=== PATIENT | female | born 1980 | race Caucasian/White ===

== ENCOUNTER 2016-04-29 13:29 | Outpatient (CLI) | payer OTHER ==
[2016-04-29] MEDS ORDERED: GADOBUTROL 7.5 MMOL/7.5 ML VIAL IVP ONE (14:05)
== END 2016-04-29 13:30 | disposition home or self-care (01) ==
DX: E23.6 Other disorders of pituitary gland (principal); R20.9 Unspecified disturbances of skin sensation; R90.89 Other abnormal findings on diagnostic imaging of central nervous system
CPT/HCPCS: 70553; A9585

== ENCOUNTER 2017-05-05 07:47 | Outpatient (CLI) | payer OTHER ==
--- NOTE | 2017-05-06 18:50 | Mammography Report ---
DIGITAL SCREENING MAMMOGRAM: 05/05/2017 CLINICAL INDICATION: A 37-year-old with family history of breast cancer (mother, diagnosed at age 40) for screening. COMPARISON: 10/2015, 06/2014, 04/2012. TECHNIQUE: Routine CC and MLO projections as well as bilateral laterally exaggerated craniocaudal views were obtained of the breasts. FINDINGS: The breasts again demonstrate heterogeneously dense fibroglandular parenchyma bilaterally. Punctate, typically benign calcifications are present. No suspicious masses, clustered microcalcifications, or regions of architectural distortion are identified. IMPRESSION: BENIGN FINDINGS. RECOMMENDATIONS: Routine annual screening unless otherwise clinically indicated. BIRADS category 2 benign findings. STANDARD QUALIFYING STATEMENTS 1. This examination was reviewed with the aid of Computed-Aided Detection (CAD). 2. A negative or benign imaging report should not delay biopsy if clinically suspicious findings are present. Consider surgical consultation if warranted. More than 5% of cancers are not identified by imaging. 3. Dense breasts may obscure an underlying neoplasm. TD: 05/06/2017 18:49
== END 2017-05-05 07:48 | disposition home or self-care (01) ==
LOC: DI 07:47
PROVIDERS: ATTEND Family Medicine
DX: Z12.31 Encounter for screening mammogram for malignant neoplasm of breast (principal); Z80.3 Family history of malignant neoplasm of breast
CPT/HCPCS: 77067

== ENCOUNTER 2017-05-05 07:47 | Outpatient (CLI) | payer OTHER ==
[2017-05-05] MEDS ORDERED: GADOBUTROL 7.5 MMOL/7.5 ML VIAL ONE (07:52)
[2017-05-05] MEDS ORDERED: GADOBUTROL 7.5 MMOL/7.5 ML VIAL IVP ONE (08:51)
--- NOTE | 2017-05-05 11:21 | MRI Report ---
EXAM: MRI BRAIN WITHOUT AND WITH CONTRAST EXAM DATE: 05/05/2017 09:04 AM. CLINICAL HISTORY: Brain cyst, compare to MRI April 2016. COMPARISON: MRI brain 04/29/2016. TECHNIQUE: Multiplanar, multisequence T1-weighted and fluid-sensitive MR sequences of the brain were performed. Sequences optimized for routine evaluation. Other: None. IV Contrast: 7.5 cc Gadavist. FINDINGS: No cerebellar tonsillar ectopia is present. No abnormal diffusion signal or magnetic susceptibility is identified in the brain parenchyma. Ventricles and sulci are within normal limits. No extra-axial fluid collection is present. There are a few FLAIR hyperintensities in the subcortical white matter of each cerebral hemisphere mo st evident in the frontal lobe bilaterally. No abnormal T1 shortening is present in the brain parenchyma. The pituitary stalk is not thickened. The pituitary gland is normal in size. On the sagittal T1 fat-s aturated sequence there is an oval 4 x 2 mm T1 hypointense focus which on the precontrast images is s omewhat T1 hyperattenuating. This is unchanged in size. This is seen in the posterior aspect of the s scot turcica near midline. No enhancing mass is identified in the brain parenchyma. The cavernous sinuses enhance in symmetric f ashion. Expected enhancement is seen in the major dural venous sinuses. Paranasal sinus mucosal thickening is seen, most evident in the ethmoid air cells and maxillary sinus . IMPRESSION: 1. Stable pituitary lesion. 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 Continued imaging surveillance may be of value. 2. Subcortical FLAIR hyperintensities in each frontal lobe are nonspecific. Commonly, these are seen in association with certain headache syndromes or secondary to small vessel ischemic change. 3. No enhancing mass is present in the brain parenchyma. 4. Paranasal sinus mucosal thickening is present. [facility] Referring Provider Line: [phone] SITE ID: [id number]
== END 2017-05-05 07:48 | disposition home or self-care (01) ==
LOC: DI 07:47
PROVIDERS: ATTEND Family Medicine
DX: E23.7 Disorder of pituitary gland, unspecified (principal)
CPT/HCPCS: 70553; A9585

== ENCOUNTER 2017-07-04 09:12 | Outpatient (CLI) | payer OTHER | END 2017-07-04 09:13 | disposition home or self-care (01) | LOC: RT 09:12 | PROVIDERS: ATTEND Family Medicine | DX: R06.02 Shortness of breath (principal) | CPT/HCPCS: 94010 ==

== ENCOUNTER 2017-11-04 15:25 | Outpatient (CLI) | payer OTHER ==
--- NOTE | 2017-11-04 16:58 | XRAY Report ---
Procedure Date: 11/04/2017 Accession Number: [id number] / [id number] Procedure: XRN - Foot 3 View RT CPT Code: FULL RESULT: EXAM: RIGHT FOOT RADIOGRAPHY EXAM DATE: 11/04/2017 03:38 PM. CLINICAL HISTORY: Contusion right foot. COMPARISON: None. TECHNIQUE: 3 views. FINDINGS: Bones: Normal. No fractures or bone lesions. Joints: Normal. No subluxations. Soft Tissues: Normal. No soft tissue swelling. IMPRESSION: Normal foot radiography. [facility]
== END 2017-11-04 15:26 | disposition home or self-care (01) ==
LOC: DI.N 15:25
PROVIDERS: ATTEND Family Medicine
DX: S90.31XA Contusion of right foot, initial encounter (principal)

== ENCOUNTER 2018-08-18 09:40 | Outpatient (CLI) | payer OTHER ==
[2018-08-18] MEDS ORDERED: GADOBUTROL 10 MMOL/10 ML VIAL ONE (09:48)
[2018-08-18] MEDS ORDERED: GADOBUTROL 10 MMOL/10 ML VIAL IVP ONE ×2 (10:43)
--- NOTE | 2018-08-18 15:43 | MRI Report ---
Reason: PITUITARY LESION Procedure Date: 08/18/2018 Accession Number: [id number] / [id number] Procedure: MRI - Brain W/WO CPT Code: FULL RESULT: EXAM: MRI BRAIN WITHOUT AND WITH CONTRAST EXAM DATE: 08/18/2018 10:44 AM. CLINICAL HISTORY: PITUITARY LESION. COMPARISON: BRAIN W/WO 05/05/2017 8:00 AM BRAIN W/WO 04/29/2016 1:42 PM HEAD W/O 01/23/2016 9:53 AM. TECHNIQUE: Multiplanar, multisequence T1-weighted and fluid-sensitive MR sequences of the brain were performed. Sequences optimized for routine brain and pituitary evaluation. Other: None. IV Contrast: Yes, 8 mL Gadavist. FINDINGS: Brain Volume: Normal for age. Parenchyma: No acute hemorrhage, mass, or infarct. Several punctate foci of increased T2 signal involving subcortical white matter of the cerebral hemispheres, within normal limits for adults. No abnormal enhancement. Ventricles/Cisterns: No hydrocephalus. No abnormal extra-axial fluid collection or hemorrhage. Orbits: Symmetric and unremarkable. Sella Turcica: The pituitary is normal in size. Again there is a 4 x 2 mm focus of high T1 signal in the posterior aspect of the plan. This demonstrates prominent high T1 signal on all series except T1 fat-saturation postcontrast. Infundibulum midline and normal in appearance. Suprasellar cistern unremarkable. Cavernous sinuses and optic chiasm unremarkable. IAC: Symmetric and unremarkable. Vasculature: Normal signal flow void is seen in the major arterial structures at the skull base. The dural sinuses are patent and enhance normally. Sinuses: There is mild bilateral maxillary sinus mucosal thickening. No sinus fluid levels. Bones: No focal pathologic appearing marrow signal changes. Other: None. IMPRESSION: 1. 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 2. Mild chronic appearing paranasal sinus disease. 3. Otherwise normal brain MRI. [facility]
== END 2018-08-18 09:41 | disposition home or self-care (01) ==
LOC: DI 09:40
PROVIDERS: ATTEND Family Medicine
DX: E23.6 Other disorders of pituitary gland (principal); J32.9 Chronic sinusitis, unspecified
CPT/HCPCS: 70553; A9585

== ENCOUNTER 2019-03-03 11:24 | Outpatient (CLI) | payer OTHER ==
--- NOTE | 2019-03-03 11:57 | Mammography Report ---
Reason: ROUTINE MAMMO Procedure Date: 03/03/2019 Accession Number: [id number] / [id number] Procedure: MGN - Screening Mammo Dig Bilat CPT Code: Final Report FULL RESULT: EXAM: Screening Mammo Dig Bilat DATE: 03/03/2019 11:45 AM CLINICAL HISTORY: Screening encounter. Family history of breast cancer in the mother at the age of 40. TECHNIQUE: (B) - Bilateral CC and MLO views were obtained. Left laterally exaggerated CC view is obtained. COMPARISON: 05/05/2017 through 05/08/2012. PARENCHYMAL PATTERN: (D) - The breast(s) demonstrate(s) heterogeneously dense fibroglandular parenchyma. FINDINGS: There are no suspicious masses, calcifications, or areas of distortion. IMPRESSION: Negative examination. BI-RADS category 1. RECOMMENDATION: (ANNUAL) - Recommend routine annual screening mammography. BI-RADS CATEGORY: (1) - Negative. STANDARD QUALIFYING STATEMENTS: 1. This examination was not reviewed with the aid of Computer-Aided Detection (CAD). 2. A negative or benign imaging report should not preclude biopsy if clinically suspicious findings are present. 3. Dense breasts may obscure an underlying neoplasm. 4. This examination was reviewed without the aid of 3D breast imaging (tomosynthesis).
== END 2019-03-03 11:25 | disposition home or self-care (01) ==
LOC: DI.N 11:24
DX: Z12.31 Encounter for screening mammogram for malignant neoplasm of breast (principal); Z80.3 Family history of malignant neoplasm of breast
CPT/HCPCS: 77067

== ENCOUNTER 2019-09-28 09:55 | Outpatient (CLI) | payer OTHER ==
--- NOTE | 2019-09-28 17:03 | XRAY Report ---
PROCEDURE: Hand 3 View RT INDICATIONS: RT HAND PAIN TECHNIQUE: 3 views of the hand(s) acquired. COMPARISON: None. FINDINGS: Bones: No fractures or dislocations. No suspicious bony lesions. Soft tissues: No suspicious soft tissue calcifications. IMPRESSION: Right hand without acute fracture or dislocation. If there is persistent clinical concern for a radiographically occult fracture, recommend immobilizat ion and repeat imaging in 10 to 14 days. Reviewed by: Wily Cohn MD on 09/28/2019 5:01 PM PDT Approved by: Wily Cohn MD on 09/28/2019 5:01 PM PDT Station ID: [id number]
== END 2019-09-28 09:56 | disposition home or self-care (01) ==
LOC: DI 09:55
PROVIDERS: ATTEND Physician Assistant
DX: M79.641 Pain in right hand (principal)

== ENCOUNTER 2020-03-30 08:56 | Outpatient (CLI) | payer OTHER ==
--- NOTE | 2020-03-31 12:51 | Mammography Report ---
BILATERAL DIGITAL SCREENING MAMMOGRAM 3D/2D: 03/30/2020 CLINICAL: Family history of breast cancer. Routine screening. Comparison is made to exams dated: 03/03/2019 mammogram, 03/04/2018 mammogram, 11/13/2015 mammogram, 07/11/2014 mammogram, 07/05/2014 mammogram, and 05/08/2012 mammogram - [facility]. Th e tissue of both breasts is heterogeneously dense. This may lower the sensitivity of mammography. No significant masses, calcifications, or other findings are seen in either breast. There has been no significant interval change. IMPRESSION: NEGATIVE There is no mammographic evidence of malignancy. A 1 year screening mammogram is recommended. This exam was interpreted at Station ID: [id number]. NOTE: For mammograms, a report in lay terms will be sent to the patient. Approximately 15% of breast malignancies will not be visualized mammographically. In the management of a palpable breast mass, a negative mammogram must not discourage biopsy of a clinically suspicious lesion. Electronically Signed By: Davis Sanchez acr/penrad:03/30/2020 10:05:52 ACR BI-RADS Category 1: Negative 3341F PARENCHYMAL PATTERN: (D) - The breast(s) demonstrate(s) heterogeneously dense fibroglandular [place]. BI-RADS CATEGORY: (1) - 1 RECOMMENDATION: (ANNUAL) - Recommend routine annual screening mammography. [id number] 1 year screening LATERALITY: (B)
--- OUTSIDE RECORDS SUMMARY | 2020-04-05 01:02 | EXTERNAL MEDICAL SUMMARY RPT | Continuity of Care Document ---
:1980 Demographics Phone Unavailable Preferred Language Unknown Marital Status Unknown Moravian Affiliation Unknown Race Unknown Ethnic Group Unknown Author Organization [facility] Address [address] [phone] Phone Care Team Providers Name Role Phone Sisu Unavailable Unavailable Allergies date description facility No Known Drug Allergies [facility] Social History date description facility [id number]
== END 2020-03-30 08:57 | disposition home or self-care (01) ==
LOC: DI.N 08:56
DX: Z12.31 Encounter for screening mammogram for malignant neoplasm of breast (principal); Z80.3 Family history of malignant neoplasm of breast
CPT/HCPCS: 77067

== ENCOUNTER 2020-06-30 07:26 | Outpatient (CLI) | payer OTHER ==
--- NOTE | 2020-06-30 12:32 | CARDIAC PROCEDURE NOTE ---
DATE OF SERVICE: 06/30/2020 Physician: Vijaya Bello MD, [facility] INDICATION: Exertional dyspnea. CARDIAC RISK FACTORS: Obesity, family history of heart disease. DESCRIPTION OF PROCEDURE: After signing informed consent, the patient underwent a Kory-protocol treadmill stress test. There was no cardiac imaging ordered with this test. RESTING HEART RATE: 110. PEAK HEART RATE: 169 (92% predicted maximum heart rate for age). RESTING BLOOD PRESSURE: 140/77. PEAK BLOOD PRESSURE: 197/80. The patient exercised for 4 minutes and 4 seconds on a Kory-protocol treadmill stress test. She achieved a peak heart rate of 169 (92% PMHR) and 5.9 METs. The patient developed moderate shortness of breath at the end of stage I and severe shortness of breath at peak exercise. She rated her perceived exertion at 16/20 at peak on the Gurinder scale. The patient had no chest pain. Oxygen saturation was 98-100% on room air throughout the test. RESTING EKG: Sinus tachycardia, rate 110, right atrial enlargement, occasional PVCs. EKG AT PEAK: No new ST segment or T-wave changes develop, rare PVCs seen in early recovery (which were symptomatic). SUMMARY: 1. Abnormal resting EKG. She was tachycardic the entire visit. 2. Poor exercise tolerance, but no desaturation of oxygen developed. 3. No ischemic changes by EKG criteria. 4. This patient's cardiac risk: Low. IMPRESSION: 1. Normal stress test regarding coronary artery disease. 2. Possible cor pulmonale given the findings of right atrial enlargement on resting EKG and early shortness of breath. RECOMMENDATIONS: Echo to evaluate for cor pulmonale and also advise PFTs, sleep apnea study, referral to Pulmonology. cc: Marissa Cutler PA-C TD: 06/30/2020 12:31 [facility]
== END 2020-06-30 07:27 | disposition home or self-care (01) ==
LOC: DI 07:26
PROVIDERS: ATTEND Physician Assistant Medical
DX: R06.09 Other forms of dyspnea (principal); R00.0 Tachycardia, unspecified
CPT/HCPCS: 93017

== ENCOUNTER 2021-01-10 11:58 | Outpatient (CLI) | payer OTHER | END 2021-01-10 11:59 | disposition home or self-care (01) | LOC: DI 11:58 | PROVIDERS: ATTEND Physician Assistant | DX: R07.9 Chest pain, unspecified (principal); R06.09 Other forms of dyspnea | CPT/HCPCS: 93306 ==

== ENCOUNTER 2021-05-14 12:02 | Emergency (ER) | payer OTHER ==
--- NOTE | 2021-05-14 12:08 | ED Physician Documentation ---
PD HPI URI - Stated complaint Stated Complaint: COUGH, SOA - History obtained from History obtained from: Patient - History of Present Illness Timing - onset: How many months ago (1) Timing duration: Months (1) Timing details: Gradual onset, Still present Associated symptoms: Dry cough, Dyspnea. No: Fever, Chills, Sore throat Contributing factors: Sick contact (had COVID with positive test 04/15/21 and symptoms about 3-4 days and improved except for persistent cough and wheezing.). No: Unimmunized, COPD / asthma Similar symptoms before: Has not had sx before Recently seen: Not recently seen Review of Systems Constitutional: reports: Myalgias. 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 - Present Medications Home Medications: Ambulatory Orders Medication Instructions Recorded Confirmed Terbinafine [Lamisil] 250 mg PO DAILY 01/23/16 03/11/16 Lorazepam [Ativan] 1 mg PO Q8H PRN #20 tablet 03/11/16 Albuterol Sulf [Ventolin Hfa 2 - 3 puffs INH Q4HR PRN #1 inhaler 05/14/21 Inhaler] Benzonatate [Tessalon] 100 mg PO TID PRN #25 cap 05/14/21 Doxycycline Hyclate 100 mg PO BID 5 Days #10 cap 05/14/21 dexAMETHasone [Decadron] 4 mg PO DAILY #6 tablet 05/14/21 - Allergies Allergies/Adverse Reactions: Allergies Allergy/AdvReac Type Severity Reaction Status Date / Time No Known Drug Allergies Allergy Verified 05/14/21 12:08 - Social History Does the pt smoke?: No Smoking Status: Never smoker PD ED PE NORMAL - Vitals Vital signs reviewed: Yes - General General: Alert and oriented X 3, No acute distress, Well developed/nourished - HEENT HEENT: Ears normal, Pharynx benign - Neck Neck: Supple, no meningeal sign, No adenopathy - Cardiac Cardiac: RRR, No murmur - Respiratory Respiratory: No: Clear bilaterally (no coarse sounds but has exp wheezing centrally and decreased tidal volume. COughing episode with deep breathing. ) - Derm Derm: Normal color, Warm and dry - Extremities Extremities: No edema, No calf tenderness / cord - Neuro Neuro: Alert and oriented X 3, No motor deficit, Normal speech Results - Vitals Vitals: Oxygen O2 Source Room air - Rads (name of study) chest xray Radiology: Prelim report reviewed (no acute process, no infiltrates. ), See rad report PD MEDICAL DECISION MAKING - ED course Complexity details: re-evaluated patient (improved cough and breathing with neb treatment and meds. ), considered differential, d/w patient Departure - Departure Disposition: 01 Home, Self Care Clinical Impression: Persistent cough for 3 weeks or longer, Acute bronchitis due to COVID-19 virus Condition: Stable Record reviewed to determine appropriate education?: Yes Instructions: ED Upper Resp Infec Abx Tx Follow-Up: THUY SIMON PA-C [Primary Care Provider] - Prescriptions: Albuterol Sulf [Ventolin Hfa Inhaler] 2 - 3 puffs INH Q4HR PRN #1 inhaler PRN Reason: Shortness Of Air/Wheezing dexAMETHasone [Decadron] 4 mg PO DAILY #6 tablet Doxycycline Hyclate 100 mg PO BID 5 Days #10 cap Benzonatate [Tessalon] 100 mg PO TID PRN #25 cap PRN Reason: Cough Comments: Use the albuterol inhaler 2 to 3 puffs 4 times a day for the next several days to a week and then as needed after that. Decadron 6 steroid daily for 6 more days. Use benzonatate/Tessalon if needed for cough as well. Stay well-hydrated. Your chest x-ray appears normal without any signs of pneumonia. You may be heavy persistent bronchial inflammation and irritation post Covid which would not be unusual to last for a month or 2. However it can be difficult to distinguish from a secondary bacterial infection as well. Therefore doxycycline antibiotic twice daily for 5 days can be appropriate as well. Recheck if not improving well over the next several days to week. I transmitted your prescriptions to [facility] pharmacy. Discharge Date/Time: 05/14/21 14:06
[2021-05-14 12:12] VITALS: BP 160/90
[2021-05-14] MEDS ORDERED: DEXAMETHASONE 10 MG/ML VIAL PO STA (12:38)
[2021-05-14] MEDS ORDERED: CHERRY SYRUP 10 ML UDC PO ONE (12:38)
[2021-05-14] MEDS ORDERED: ALBUTEROL NEB 2.5 MG/3 ML INH STA (12:38)
[2021-05-14] MEDS ORDERED: BENZONATATE 100 MG CAPSULE PO STA (12:38)
--- NOTE | 2021-05-14 13:01 | XRAY Report ---
PROCEDURE: Chest 1 View X-Ray INDICATIONS: cough/dyspnea TECHNIQUE: One view of the chest was acquired. COMPARISON: January 23, 2016 FINDINGS: SUPPORT DEVICES: None. LUNGS/PLEURA: No focal consolidation, pleural effusion or space-occupying pneumothorax. MEDIASTINUM: The cardiomediastinal silhouette is within normal limits. BONES/SOFT TISSUES: No acute abnormality. IMPRESSION: 1.No acute cardiopulmonary abnormality. Reviewed by: Efrain Ramon MD on 05/14/2021 12:59 PM [facility] Approved by: Efrain Ramon MD on 05/14/2021 12:59 PM [facility] Station ID: [id number]
== END 2021-05-14 14:06 | disposition home or self-care (01) ==
LOC: ED 12:02
DX: U07.1 COVID-19 (principal); J20.8 Acute bronchitis due to other specified organisms
CPT/HCPCS: 71045; 94640; 94664; 99284; A9270

== ENCOUNTER 2021-05-28 09:21 | Outpatient (CLI) | payer OTHER ==
--- NOTE | 2021-05-28 10:32 | XRAY Report ---
PROCEDURE: Chest 2 View X-Ray INDICATIONS: SOB TECHNIQUE: 2 view(s) of the chest. COMPARISON: None. FINDINGS: Surgical changes and devices: None. Lungs and pleura: No pleural effusions or pneumothorax. Diffuse interstitial prominence and bilatera l perihilar airway thickening. No focal consolidation. Findings are more pronounced in the mid and lo wer lung zones. Mediastinum: Mediastinal contours are normal. Heart size is normal. Bones and chest wall: No suspicious bony abnormalities. Soft tissues appear unremarkable. IMPRESSION: Diffuse mid and lower lung zone predominant interstitial prominence with perihilar airway thickening likely related to an infectious/inflammatory process such as reactive airway disease. No focal consol idation. Recommend follow-up chest radiograph 4-6 weeks after treatment to document resolution of findings and /or return to baseline exam. Reviewed by: Wily Cohn MD on 05/28/2021 10:31 AM [facility] Approved by: Wily Cohn MD on 05/28/2021 10:31 AM [facility] Station ID: [id number]
== END 2021-05-28 23:59 | disposition home or self-care (01) ==
LOC: DI.N 09:21
PROVIDERS: ATTEND Physician Assistant
DX: R06.00 Dyspnea, unspecified (principal); R91.8 Other nonspecific abnormal finding of lung field

== ENCOUNTER 2021-05-28 10:06 | Emergency (ER) | payer OTHER ==
[2021-05-28 10:28] VITALS: BP 174/99
--- OUTSIDE RECORDS SUMMARY | 2021-05-28 10:30 | EXTERNAL MEDICAL SUMMARY RPT | Continuity of Care Document ---
:1980 Author Organization [facility] Address [address] [place] [address] Phone Care Team Providers Name Role Phone MD Unavailable Unavailable Mckinley Unavailable Unavailable Allergies No information. Encounters No information. Medications No information. Problems date description facility [id number] X-RAY EXAM CHEST 2 VIEWS All [id number] Shortness of breath All [id number] Dyspnea All [id number] [facility] Results No information. Vital Signs date measurement value source 20210528 weight_standard 206 lb 20210528 weight_metric 93.44 kg 20210528 temperature_standard 99.6 F 20210528 temperature_metric 37.56 C 20210528 respiration_rate 16 /min 20210528 height_standard 62.25 in 20210528 height_metric 158.12 cm 20210528 heart_rate 98 /min 20210528 BP_systolic 151 mm[Hg] 20210528 BP_diastolic 98 mm[Hg] 20210528 BMI 37.51 kg/m2
--- NOTE | 2021-05-28 10:47 | ED Physician Documentation ---
History of Present Illness - Stated complaint Stated Complaint: SOA - Chief complaint Chief Complaint: Resp - History obtained from History obtained from: Patient - Additonal information Additional information: The patient comes to the emergency department chief complaint of ongoing shortness of breath. She also complains of wheezing and a productive cough. The patient had Covid about 6 weeks ago and states that she is never really gotten rid of her cough since. She was seen a couple weeks ago and placed on antibiotics, steroid, and an inhaler and symptoms got a lot better. However, since she finished those treatments, her symptoms have progressively recurred. She still using her inhaler which helps only a little. She has been noticing shortness of breath, chest tightness, and wheezing since. No fevers. The patient states she has some greenish-yellow phlegm when she coughs. She did not previously have any lung problems. The patient was seen in the walk-in clinic and had an x-ray done, but the results are unknown. She was sent straight here from there because they could not give a breathing treatment. No other complaints at this time. The patient is not a smoker. Review of Systems Ten Systems: 10 systems reviewed and negative Constitutional: reports: Reviewed and negative Eyes: reports: Reviewed and negative Ears: reports: Reviewed and negative Nose: reports: Reviewed and negative Throat: reports: Reviewed and negative Cardiac: reports: Reviewed and negative Respiratory: reports: Dyspnea, Cough, Wheezing GI: reports: Reviewed and negative : reports: Reviewed and negative Skin: reports: Reviewed and negative Musculoskeletal: reports: Reviewed and negative Neurologic: reports: Reviewed and negative Psychiatric: reports: Reviewed and negative Endocrine: reports: Reviewed and negative Immunocompromised: reports: Reviewed and negative PD PAST MEDICAL HISTORY - Past Medical History Past Medical History: Yes Cardiovascular: None Respiratory: None Endocrine/Autoimmune: None GI: None - Past Surgical History 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 Home Medications: Ambulatory Orders Medication Instructions Recorded Confirmed Terbinafine [Lamisil] 250 mg PO DAILY 01/23/16 03/11/16 Lorazepam [Ativan] 1 mg PO Q8H PRN #20 tablet 03/11/16 Albuterol Sulf [Ventolin Hfa 2 - 3 puffs INH Q4HR PRN #1 inhaler 05/14/21 Inhaler] Benzonatate [Tessalon] 100 mg PO TID PRN #25 cap 05/14/21 Doxycycline Hyclate 100 mg PO BID 5 Days #10 cap 05/14/21 dexAMETHasone [Decadron] 4 mg PO DAILY #6 tablet 05/14/21 Albuterol Sulf [Ventolin Hfa 1 - 2 puffs INH Q4HR PRN #1 inhaler 05/28/21 Inhaler] Azithromycin [Zithromax] 0 mg PO DAILY #6 tablet 05/28/21 predniSONE [Deltasone] 60 mg PO DAILY 5 Days #15 tablet 05/28/21 - Allergies Allergies/Adverse Reactions: Allergies Allergy/AdvReac Type Severity Reaction Status Date / Time No Known Drug Allergies Allergy Verified 05/28/21 10:14 - Social History Does the pt smoke?: No Smoking Status: Never smoker - POLST Patient has POLST: No PD ED PE NORMAL - Vitals Vital signs reviewed: Yes - General General: Alert and oriented X 3, Well developed/nourished, Other (Mild respiratory distress, Otherwise well-appearing) - HEENT HEENT: Atraumatic, PERRL, EOMI, Moist mucous membranes - Neck Neck: Supple, no meningeal sign - Cardiac Cardiac: RRR, No murmur - Respiratory Respiratory: Other (Mild respiratory distress with moderately labored respirations but speaking in full sentences. Decreased lung sounds bilaterally worse on left. Fine expiratory wheezes. 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 I felt she should have a nebulizer treatment and steroids here in the emergency department. I reviewed her chest x-ray from the walk-in and this was unremarkable. The patient was feeling better after nebulizer treatment. Her sats were consistently in the mid 90s on room air and I felt she was stable for discharge. I have given her a prescription for a new inhaler and first course of steroids. We have discussed the need for follow-up and that the patient may benefit from a pulmonology consult, which she can discuss with her primary doctor. We have discussed the usual indications for return. Departure - Departure Disposition: 01 Home, Self Care Clinical Impression: Reactive airway disease with acute exacerbation Qualifiers: Asthma severity: mild Asthma persistence: intermittent Qualified Code(s): J45.21 - Mild intermittent asthma with (acute) exacerbation Condition: Stable Instructions: ED Reactive Airway Disease Prescriptions: Albuterol Sulf [Ventolin Hfa Inhaler] 1 - 2 puffs INH Q4HR PRN #1 inhaler PRN Reason: Shortness Of Air/Wheezing predniSONE [Deltasone] 60 mg PO DAILY 5 Days #15 tablet Azithromycin [Zithromax] 0 mg PO DAILY #6 tablet Comments: Your prescriptions have been electronically transmitted to [facility] in [place]. Discharge Date/Time: 05/28/21 12:06
[2021-05-28] MEDS ORDERED: DEXAMETHASONE 10 MG/ML VIAL IV STA (11:01)
[2021-05-28] MEDS ORDERED: IPRATROPIUM/ALBUTEROL 3 ML NEB INH STA (11:01)
== END 2021-05-28 12:06 | disposition home or self-care (01) ==
LOC: ED 10:06
DX: J45.21 Mild intermittent asthma with (acute) exacerbation (principal)
CPT/HCPCS: 94640; 96374; 99284

== ENCOUNTER 2021-06-04 05:56 | Emergency (ER) | payer OTHER ==
--- OUTSIDE RECORDS SUMMARY | 2021-06-04 06:18 | EXTERNAL MEDICAL SUMMARY RPT | Continuity of Care Document ---
:1980 Author Organization [facility] Address [address] [place] [address] Phone Care Team Providers Name Role Phone MD Unavailable Unavailable Mckinley Unavailable Unavailable PA-C Unavailable Unavailable Allergies No information. Encounters No information. Medications No information. Problems date description facility 20210528 Shortness of breath All 20210528 X-RAY EXAM CHEST 2 VIEWS All 20210528 Dyspnea All [id number] [facility] Results No information. Vital Signs date measurement value source 20210528 weight_standard 206 lb 20210528 weight_metric 93.44 kg 20210528 temperature_standard 99.6 F 20210528 temperature_metric 37.56 C 20210528 respiration_rate 16 /min 20210528 height_standard 62.25 in 20210528 height_metric 158.12 cm 20210528 heart_rate 98 /min 20210528 BP_systolic 151 mm[Hg] 20210528 BP_diastolic 98 mm[Hg] 20210528 BMI 37.51 kg/m2 20210528 weight_standard 206 lb 20210528 weight_metric 93.44 kg 20210528 temperature_standard 99.6 F 20210528 temperature_metric 37.56 C 20210528 respiration_rate 16 /min 20210528 height_standard 62.25 in 20210528 height_metric 158.12 cm 20210528 heart_rate 98 /min 20210528 BP_systolic 151 mm[Hg] 20210528 BP_diastolic 98 mm[Hg] 20210528 BMI 37.51 kg/m2
--- NOTE | 2021-06-04 06:30 | ED Physician Documentation ---
History of Present Illness - Stated complaint Stated Complaint: BILAT KNEE PX - Chief complaint Chief Complaint: Ext Problem - History obtained from History obtained from: Patient - Additonal information Additional information: Patient presenting for evaluation of right-sided rib pain that has been present for 2 weeks and worse with coughing. Patient states recent bout with bronchitis and has had excessive coughing causing pain to that area of her chest wall. Last night she tried KT tape to the area but it did not help and she believes made it worse. Overnight the pain intensified And she had trouble sleeping. This morning when she woke up she had pain also in both knees. She denies any known trauma. Movement makes her pains worse. She has not tried any medications this morning for it. The pain is sharp. Denies previous injuries to this area. Denies difficulty breathing. Denies chest pain elsewhere. Denies abdominal pain, vomiting, diarrhea, numbness or tingling. Review of Systems Constitutional: denies: Fever Nose: denies: Congestion Throat: denies: Dental pain / toothache Cardiac: denies: Chest pain / pressure Respiratory: reports: Cough GI: denies: Abdominal Pain, Nausea, Vomiting : denies: Dysuria Skin: denies: Rash Neurologic: denies: Syncope PD PAST MEDICAL HISTORY - Past Medical History Cardiovascular: None Respiratory: None Endocrine/Autoimmune: None GI: None - Past Surgical History Past Surgical History: Yes /[employer]: section - Present Medications Home Medications: Ambulatory Orders Medication Instructions Recorded Confirmed Albuterol Sulf [Ventolin Hfa 1 - 2 puffs INH Q4HR PRN #1 inhaler 05/28/21 Inhaler] Gabapentin [Gralise] 300 mg PO BID 06/04/21 06/04/21 HYDROcod/ACETAM 5/325 [[place] 5/325] 1 tab PO Q6H PRN #10 tablet 06/04/21 Sertraline HCl 100 mg PO DAILY 06/04/21 06/04/21 - Allergies Allergies/Adverse Reactions: Allergies Allergy/AdvReac Type Severity Reaction Status Date / Time No Known Drug Allergies Allergy Verified 06/04/21 06:13 - Social History Does the pt smoke?: No Smoking Status: Never smoker - POLST Patient has POLST: No PD ED PE NORMAL - General General: Alert and oriented X 3, No acute distress, Well developed/nourished - HEENT HEENT: Atraumatic, Moist mucous membranes - Neck Neck: Supple, no meningeal sign - Cardiac Cardiac: RRR, No murmur, Strong equal pulses, Other (Right-sided chest wall tenderness to palpation with no crepitus, flail segment, rash) - Respiratory Respiratory: No respiratory distress, Clear bilaterally - Abdomen Abdomen: Normal bowel sounds, Soft, Non tender, Non distended - Derm Derm: Normal color, No rash - Extremities Extremities: No tenderness to palpate, Normal ROM s pain, Other (States bilateral knees feel achy, no effusion, no overlying rash, no swelling, Intact pedal pulses bilaterally) - Neuro Neuro: No sensory deficit - Psych Psych: Normal mood, Normal affect PD ED PE EXPANDED - Visual Whole body visual: 1 - tenderness Results - Vitals Vitals: Vital Signs - 24 hr 06/04/21 06/04/21 06:09 07:14 Temperature 36.3 C L 36.3 C L Heart Rate 102 H 84 Respiratory 18 18 Rate Blood Pressure 147/101 H 134/90 H O2 Saturation 99 100 Oxygen O2 Source Room air PD MEDICAL DECISION MAKING - ED course ED course: Patient presenting for evaluation of right-sided chest wall pain and bilateral knee pain. Patient has recently had bronchitis and been coughing which has triggered pain to the Right lower ribs. She has an area of tenderness. I have very low concern that this is cardiac in nature. I did obtain an EKG.No STEMI. Additionally I do not think her symptoms suggest pulmonary embolism as she has no risk factors for a PE.Her initial tachycardia appeared to be due to pain And has resolved.Patient has achiness to bilateral knees with no signs of effusion, infection, edema suggestive of DVT.X-rays of the chest is negative for a pneumothorax. Bilateral knee x-rays are negative for fracture dislocation. Discussed continuing with supportive care with patient which she is agreeable to.Patient was ambulatory at discharge. Departure - Departure Disposition: 01 Home, Self Care Clinical Impression: Rib pain on right side Bilateral knee pain Qualifiers: Chronicity: acute Qualified Code(s): M25.561 - Pain in right knee Condition: Stable Instructions: ED Strain Chest Wall, ED RICE Prescriptions: HYDROcod/ACETAM 5/325 [[place] 5/325] 1 tab PO Q6H PRN #10 tablet PRN Reason: Pain Comments: Your x-rays Do not show a fracture or a collapsed lung. Please continue with pain medication as needed. A prescription was sent to the [facility] in [place].You can additionally use lidocaine patches which are available [id number] as needed. Please return to the emergency department if you develop new symptoms such as chest pain elsewhere, difficulty breathing, leg swelling, or any concerns.Please also have close follow-up with your primary care doctor. Forms: Activity restrictions Discharge Date/Time: 06/04/21 07:21
[2021-06-04 07:14] VITALS: BP 134/90
--- NOTE | 2021-06-04 08:10 | XRAY Report ---
PROCEDURE: Knee 2 View BILAT INDICATIONS: pain TECHNIQUE: 5 views of the bilateral knee(s) were acquired. COMPARISON: None. FINDINGS: Bones: No fractures or dislocations. No suspicious bony lesions. Soft tissues: No joint effusion. No suspicious soft tissue calcifications. IMPRESSION: No acute knee fracture or dislocation. No significant joint effusion. No discrepancies from preliminary reading. Reviewed by: Tomás Sexton MD on 06/04/2021 8:08 AM PDT Approved by: Tomás Sexton MD on 06/04/2021 8:08 AM PDT Station ID: [id number]
--- NOTE | 2021-06-04 08:13 | XRAY Report ---
PROCEDURE: Chest 1 View X-Ray INDICATIONS: R rib pain TECHNIQUE: One view of the chest was acquired. COMPARISON: 05/28/2021 FINDINGS: Surgical changes and devices: None. Lungs and pleura: No pleural effusions or pneumothorax. Lungs are clear. Mediastinum: Mediastinal contours appear normal. Heart size is normal. Bones and chest wall: No suspicious bony lesions. Overlying soft tissues appear unremarkable. IMPRESSION: No acute cardiopulmonary pathology. No discrepancies from preliminary reading. Reviewed by: Tomás Sexton MD on 06/04/2021 8:12 AM PDT Approved by: Tomás Sexton MD on 06/04/2021 8:12 AM PDT Station ID: [id number]
== END 2021-06-04 07:21 | disposition home or self-care (01) ==
LOC: ED 05:56
DX: R07.81 Pleurodynia (principal); M25.562 Pain in left knee; M25.561 Pain in right knee
CPT/HCPCS: 93005; 99282; 99284

== ENCOUNTER 2021-06-06 18:30 | Outpatient (CLI) | payer OTHER ==
--- NOTE | 2021-06-06 22:50 | XRAY Report ---
PROCEDURE: Chest 2 View X-Ray INDICATIONS: SOB TECHNIQUE: 2 view(s) of the chest. COMPARISON: Chest x-ray 05/05/2021 FINDINGS: Surgical changes and devices: None. Lungs and pleura: No pleural effusions or pneumothorax. Lungs are clear. Mediastinum: Mediastinal contours are normal. Heart size is normal. Bones and chest wall: No suspicious bony abnormalities. Soft tissues appear unremarkable. IMPRESSION: No acute pulmonary process. Reviewed by: Sheree Daniel MD on 06/06/2021 10:49 PM PDT Approved by: Sheree Daniel MD on 06/06/2021 10:49 PM PDT Station ID: [id number]
== END 2021-06-06 23:59 | disposition home or self-care (01) ==
LOC: DI.N 18:30
PROVIDERS: ATTEND Family Medicine
DX: R06.00 Dyspnea, unspecified (principal)

== ENCOUNTER 2021-07-25 14:42 | Outpatient (CLI) | payer OTHER ==
[2021-07-25] MEDS ORDERED: ALBUTEROL 1 PUFF INH STA (17:28)
== END 2021-07-25 14:43 | disposition home or self-care (01) ==
LOC: RT 14:42
PROVIDERS: ATTEND Internal Medicine
DX: J45.909 Unspecified asthma, uncomplicated (principal); R06.02 Shortness of breath; R05.9 Cough, unspecified
CPT/HCPCS: 94060

== ENCOUNTER 2022-02-12 09:05 | Outpatient (CLI) | payer OTHER | END 2022-02-12 09:06 | disposition home or self-care (01) | LOC: DI 09:05 | PROVIDERS: ATTEND Internal Medicine Cardiovascular Disease | DX: R00.2 Palpitations (principal); R00.0 Tachycardia, unspecified | CPT/HCPCS: 93306 ==

== ENCOUNTER 2023-10-16 12:18 | Outpatient (CLI) | payer OTHER ==
--- NOTE | 2023-10-16 17:17 | XRAY Report ---
Chest 2V HISTORY: SHORTNESS OF BREATH COMPARISON: 06/06/2021 50. TECHNIQUE: 2 views of the chest are submitted for interpretation. FINDINGS/IMPRESSION: The right costophrenic angle is excluded from [id number], limiting evaluation. No pleural effusion or pneumothorax. No pulmonary edema or focal consolidation. Normal cardiomediastinal silhouette. Reviewed by: Rosemary Machado MD on 10/16/2023 5:16 PM PDT Approved by: Rosemary Machado MD on 10/16/2023 5:16 PM PDT Station ID: [id number]
== END 2023-10-16 12:19 | disposition home or self-care (01) ==
LOC: DI 12:18
PROVIDERS: ATTEND Physician Assistant Medical
DX: R06.02 Shortness of breath (principal)

== ENCOUNTER 2023-12-12 08:15 | Outpatient (CLI) | payer OTHER ==
--- NOTE | 2023-12-12 17:46 | XRAY Report ---
PROCEDURE: Foot 3+V RT INDICATIONS: CONTUSION OF RIGHT FOOT TECHNIQUE: 3 views of the foot were acquired. COMPARISON: Right foot x-ray 11/04/2017 FINDINGS: No acute fracture or dislocation. The Lisfranc interval is preserved on the nonweightbearing view. Mi ld hallux valgus with lateralization of the hallux sesamoids. Bipartite medial hallux sesamoid. Haglu nd morphology of the posterior calcaneal tuberosity. IMPRESSION: No acute fracture or dislocation of the right foot. Reviewed by: Jonnie Hernandez MD on 12/12/2023 5:45 PM PDT Approved by: Jonnie Hernandez MD on 12/12/2023 5:45 PM PDT Station ID: [id number]
== END 2023-12-12 08:30 | disposition home or self-care (01) ==
LOC: DI.N 08:15
PROVIDERS: ATTEND Physician Assistant
DX: S90.31XA Contusion of right foot, initial encounter (principal)